=== PATIENT | female | born 1965 | race Caucasian/White ===

== ENCOUNTER 2019-12-01 10:12 | Day surgery (SDC) | payer OTHER, SELFPAY ==
[2019-11-27 19:46] VITALS: BMI 26.0
[2019-12-01 10:44] VITALS: BP 98/68; PULSE 66; RESP 16; TEMP 37.2; O2SAT 99; BMI 29.8
--- NOTE | 2019-12-01 11:30 | HO.ANESPROP2 ---
FORMERLY [facility] Past Medical History Medical History delivery delivered Social History Social History Smoking Status: Current some day smoker Packs Per Day: 0 Cigarettes Per Day: 0.0 Smoked in Last 30 Days: Yes Patient Interested in Nicotine Replacement: No Patient Given Instructions on How to Stop Smoking: No Second Hand Smoke Exposure: Yes Use of substances other than those prescribed or required for medical reasons: No Advance Directives: No Advance Directives Information Provided: No Advance Directives on File: No Meds Allergies Allergy/AdvReac Type Severity Reaction Status Date / Time No Known Allergies Allergy Verified 12/01/19 10:55 Home Medications Medication Instructions Recorded Confirmed Type No Known Home Meds 12/01/19 12/01/19 History Exam Exam Date and Time: December 01, 2019 1130 Height,Weight and Vital Signs: Height 5 ft 8 in Weight 88.952 kg Last Vital Signs Temp 98.9 F 12/01/19 10:44 Pulse 66 12/01/19 10:44 Resp 16 12/01/19 10:44 BP 98/68 12/01/19 10:44 Pulse Ox 99 12/01/19 10:44 Airway Mallampati Class: II TM Dist: >3cm Neck ROM: Full Loose/Missing/Broken Teeth: No Heart: [id number]+[id number] Lungs: ctab/l Assessment and Plan Assessment Anesthesia Assessment: Anesthesia Plan Discussed and Chart Reviewed Final Anesthetic Review NPO: Yes ASA Class: II Final Preanesthetic Review: No Changes in Pt Med Stat, Meds/Allgs Chart Reviewed, Consent Obtained/Reviewed and Anes Risks/Benef Reviewed Patient Risk: Low Procedure Risk: Low Anesthetic Plan Anesthetic Plan: MAC: Disposition: Standard PACU
[2019-12-01] MEDS: Lactated Ringers 1,000 ML 50 ML IVCONT (11:35)
--- NOTE | 2019-12-01 11:42 | MHC.SHP ---
Pre-Procedural Eval Section A The patient is an INPATIENT: No Changes since office visit: No Cold of Flu in the past 2 weeks, No New Medical Problems, No Changes in Medication and No Patient answered all questions The History & Physical has been completed within 30 days and I have reviewed it.: Yes Section B Chief Complaint: Screening Allergies: Allergies Allergy/AdvReac Type Severity Reaction Status Date / Time No Known Allergies Allergy Verified 12/01/19 10:55 Plan Patient has been examined and remains a candidate for the planned procedure
[2019-12-01 12:19] VITALS: BP 92/63; PULSE 75; RESP 16; TEMP 36.1; O2SAT 99
--- NOTE | 2019-12-01 12:19 | PM.OP ---
Brief Operative Note Date of procedure: 12/01/19 Pre-op diagnosis: screening Post-op diagnosis: other (colon polyp) Procedure: colonoscopy Surgeon: Reza Phillips Anesthesia: MAC Estimated blood loss (mL): 5 Pathology: other (polyp 50 com) Condition: stable Disposition: PACU
[2019-12-01 12:32] VITALS: BP 98/66; PULSE 69; RESP 20; O2SAT 98
--- NOTE | 2019-12-01 12:59 | OP_ITS ---
SURGEON: Reza Phillips MD INDICATIONS: Colon cancer screening. PREOPERATIVE DIAGNOSIS: POSTOPERATIVE DIAGNOSIS: PROCEDURE PERFORMED: Colonoscopy to the terminal ileum with biopsy. ESTIMATED BLOOD LOSS: COMPLICATIONS: ANESTHESIA: ASSISTANTS: SPECIMENS: MEDICATIONS: Monitored anesthesia care. DESCRIPTION OF PROCEDURE: History and physical performed. The risks and benefits of the procedure were explained to the patient. Informed consent was obtained. The patient was placed in the left lateral decubitus position. A digital rectal exam was performed and was found to be normal. The Olympus pediatric video colonoscope was introduced into the rectum and advanced to the cecum without difficulty. The cecum was identified by transillumination, palpation, and identification of the ileocecal valve. Examination was performed and the scope was removed. She tolerated the procedure well and was taken to recovery area in stable condition. FINDINGS: The terminal ileum was normal. The visualized colonic mucosa was normal. The quality of the prep was good except in the distal transverse colon with a large amount of liquid stool. This was washed and suctioned. Limited the examination for detection of small polyps. A single polyp measuring less than 5 mm was identified and removed with biopsy forceps. This was located at 50 cm from the anal verge. There was mild diverticulosis. No other polyps were identified. Retroflexed examination showed small internal hemorrhoids. IMPRESSION: Colon polyp. RECOMMENDATION: Follow up the biopsy results. MD ELIZABETH Agudelo/ALFREDITO / [id number]
== END 2019-12-01 12:45 | disposition home or self-care (01) ==
PROVIDERS: Internal Medicine Gastroenterology; PCP Internal Medicine; Visit Provider Internal Medicine
PROC: 0DJD8ZZ Inspection of Lower Intestinal Tract, Via Natural or Artificial Opening Endoscopic (ICD-10-PCS; CPT 45378; principal; 2019-12-01 12:00)
DX: Z12.11 Encounter for screening for malignant neoplasm of colon (principal); Z80.0 Family history of malignant neoplasm of digestive organs; D12.5 Benign neoplasm of sigmoid colon; K57.30 Diverticulosis of large intestine without perforation or abscess without bleeding; K64.8 Other hemorrhoids; Z79.1 Long term (current) use of non-steroidal anti-inflammatories (NSAID)
CPT/HCPCS: 45380; 88305

== ENCOUNTER 2020-05-24 16:25 | Outpatient (REF) | payer OTHER, SELFPAY ==
[2020-05-24 17:02] LABS: MANUAL DIFF FLAG NO
[2020-05-24 17:10] LABS: Basophils Absolute Auto 0.1 X10*3/uL (0.0-0.2); Eosinophils Absolute Auto 0.2 X10*3/uL (0.0-0.4); Eosinophils Percent Auto 2.5 % (0-4); Hematocrit 41.8 % (37-47); Hemoglobin 14.2 g/dl (12.0-16.0); Imm Gran Abs Auto 0.01 X10*3/uL (0.00-0.03); Imm Gran Pct Auto 0.2 % (0.0-0.4); Lymphocytes Absolute Auto 2.5 X10*3/uL (1.2-4.9); Lymphocytes Percent Auto 42.4 % (20-40); Mean Corpuscular Hemoglobin 31.6 pg (27.0-33.0); Mean Corpuscular Volume 93.1 fL (80-98); Mean Platelet Volume 10.6 fL (9.4-12.3); Monocytes Absolute Auto 0.5 X10*3/uL (0.1-1.2); Monocytes Percent Auto 7.7 % (2-11); Neutrophils Absolute Auto 2.7 X10*3/uL (2.0-8.3); Neutrophils Percent Auto 46.2 % (45-73); Platelet Count 263 X10*3/uL (160-400); Red Blood Count 4.49 X10*6/uL (4.20-5.50); Red Cell Distribution Width 12.4 % (11.0-16.0); White Blood Count 5.9 X10*3/uL (4.8-10.8)
[2020-05-24 18:02] LABS: Alanine Aminotransferase 29 U/L (0-31); Albumin Level 4.5 g/dL (3.5-5.0); Alkaline Phosphatase 90 U/L (39-117); Anion Gap 11 (12-20); Aspartate Amino Transferase 26 U/L (5-31); Bilirubin Total 0.6 mg/dL (0.0-1.0); Blood Urea Nitrogen 14 mg/dL (9-16); Calcium 9.7 mg/dL (8.4-10.2); Carbon Dioxide 30 mmol/L (22-29); Chloride 104 mmol/L (96-108); Estimated Glomerular Filt Rate > 60; Glucose Random 94 mg/dL (60-115); Potassium 4.7 mmol/L (3.3-5.1); Sodium 140 mmol/L (135-145); Total Protein 7.5 g/dL (6.5-8.0)
[2020-05-24 18:23] LABS: T4 Thyroxine 7.8 ug/dL (4.5-12.0); Thyroid Stimulating Hormone 1.74 uIU/mL (0.32-4.0)
== END 2020-05-24 16:26 | disposition home or self-care (01) ==
LOC: HO.LAB 16:25
PROVIDERS: PCP Internal Medicine; Visit Provider Internal Medicine
DX: R79.89 Other specified abnormal findings of blood chemistry (principal); R63.5 Abnormal weight gain
CPT/HCPCS: 36415; 80053; 84436; 84443; 85025

== ENCOUNTER 2020-06-09 07:58 | Outpatient (REF) | payer OTHER, SELFPAY ==
--- NOTE | 2020-06-09 08:00 | EMG_ITS ---
Right median and ulnar motor and sensory studies were performed. Right radial sensory study was performed. Right median and lateral antecubital brachial sensory studies were performed. Paraspinal muscles were tested and deltoid was tested with a needle. IMPRESSION: This study was unremarkable with no findings suggestive of entrapment neuropathy or radiculopathy. MD ZEB Gutierrez/ALFREDITO / [id number]
== END 2020-06-09 07:59 | disposition home or self-care (01) ==
LOC: HO.NEURO 07:58
PROVIDERS: PCP Internal Medicine; Visit Provider Internal Medicine
DX: R20.2 Paresthesia of skin (principal)
CPT/HCPCS: 95886; 95910

== ENCOUNTER → 2020-06-22 08:40 | Outpatient (BNVA) | payer OTHER, SELFPAY | PROVIDERS: PCP Internal Medicine; Visit Provider Orthopaedic Surgery | DX: M25.649 Stiffness of unspecified hand, not elsewhere classified (principal); M79.641 Pain in right hand; M79.642 Pain in left hand | CPT/HCPCS: 99202 ==

== ENCOUNTER 2020-07-11 07:49 | Outpatient (REF) | payer OTHER, SELFPAY ==
[2020-07-11 09:19] LABS: C Reactive Protein 0.06 mg/dL (< or = 0.50)
[2020-07-11 09:31] LABS: Rheumatoid Factor < 15.0 IU/mL (<15.0)
[2020-07-13 13:56] LABS: Anti Nuclear Antibody Screen NEGATIVE (NEGATIVE)
== END 2020-07-11 07:50 | disposition home or self-care (01) ==
LOC: HO.LAB 07:49
PROVIDERS: PCP Internal Medicine; Visit Provider Internal Medicine
DX: M79.642 Pain in left hand (principal); M79.641 Pain in right hand
CPT/HCPCS: 36415; 86038; 86039; 86140; 86431

== ENCOUNTER 2020-07-25 09:31 | Outpatient (REF) | payer OTHER, SELFPAY ==
--- NOTE | ~2020-07-25 | MM_ITS ---
EXAMINATION: MM SCREENING DIGITAL BREAST TOMOSYNTHESIS, BILATERAL CLINICAL INFORMATION: Screening. Asymptomatic. Most recent prior outside mammography 2019 reported as normal by patient history (performed in [place] and unavailable). The lifetime risk of breast cancer based on the Tyrer-Cuzick Model is 8%. COMPARISON: Mammography: 06/26/2010 TECHNIQUE: Digital breast tomosynthesis is performed in both the craniocaudal and mediolateral oblique views along with computer-aided detection (CAD). Synthesized 2D images are generated from the tomosynthesis. FINDINGS: There are scattered areas of fibroglandular density (ACR BI-RADS breast composition Category b). Breast tissue composition borders on heterogeneously dense in the upper outer quadrants. The parenchymal distribution is similar to the prior exam 2010. There is no interval mass or architectural abnormality. The axilla and skin contours are unremarkable. No abnormal calcifications on the right. There are some loosely grouped calcifications mid 9:00 left breast, possibly vascular on tomography. Patient will be recalled to further characterize. MM/MM tomosynthesis screening BI IMPRESSION: 1. Left: Loosely grouped calcifications mid 9:00 position, possibly vascular on tomography. 2. Right: No mammographic evidence of malignancy. ASSESSMENT: BI-RADS 0: Incomplete - Need Additional Imaging Evaluation RECOMMENDATION: 1. Additional views of the left breast (magnification CC, magnification LM). 2. Radiology department staff will contact the patient for additional imaging. This patient's information was entered into a reminder system with a target due date for their next mammogram.
== END 2020-07-25 09:32 | disposition home or self-care (01) ==
LOC: HO.MAMMO 09:31
PROVIDERS: PCP Internal Medicine; Visit Provider Internal Medicine
DX: Z12.31 Encounter for screening mammogram for malignant neoplasm of breast (principal)
CPT/HCPCS: 77063; 77067

== ENCOUNTER 2020-07-29 09:34 | Outpatient (REF) | payer OTHER, SELFPAY ==
--- NOTE | ~2020-07-29 | MM_ITS ---
EXAMINATION: MM DIAGNOSTIC DIGITAL MAMMOGRAPHY, LEFT CLINICAL INFORMATION: Calcifications. COMPARISON: Mammography: 08/24/2020 and studies dating back to 12/23/2007. TECHNIQUE: Digital mammography is performed in the following views: Spot magnification views left breast in craniocaudal and 90 degree mediolateral projections. FINDINGS: The breasts are heterogeneously dense, which may obscure small masses (ACR BI-RADS breast composition Category c). Grouping of calcifications about the superior medial aspect of the left breast appear to be punctate with no linear or branching forms. Recommend 6 month follow-up magnification views. Results are provided to the patient at time of visit by the technologist. MM/MM added views LT IMPRESSION: Probable benign left breast calcifications for six-month follow-up magnification views. ASSESSMENT: BI-RADS 3: Probably Benign. RECOMMENDATION: Diagnostic mammography in 6 months. This patient's information was entered into a reminder system with a target due date for their next mammogram.
== END 2020-07-29 09:35 | disposition home or self-care (01) ==
LOC: HO.MAMMO 09:34
PROVIDERS: Visit Provider Internal Medicine
DX: R92.1 Mammographic calcification found on diagnostic imaging of breast (principal)
CPT/HCPCS: 77065

== ENCOUNTER 2021-01-17 11:10 | Outpatient (REF) | payer OTHER, SELFPAY ==
[2021-01-17 11:45] LABS: MANUAL DIFF FLAG NO
[2021-01-17 11:52] LABS: Basophils Absolute Auto 0.1 X10*3/uL (0.0-0.2); Basophils Percent Auto 1.2 % (0-2); Eosinophils Absolute Auto 0.2 X10*3/uL (0.0-0.4); Eosinophils Percent Auto 4.2 % (0-4); Hematocrit 43.5 % (37.0-47.0); Hemoglobin 14.2 g/dl (12.0-16.0); Imm Gran Abs Auto 0.01 X10*3/uL (0.00-0.03); Imm Gran Pct Auto 0.2 % (0.0-0.4); Lymphocytes Absolute Auto 1.8 X10*3/uL (1.2-4.9); Lymphocytes Percent Auto 40.9 % (20-40); Mean Corpuscular HGB Conc 32.6 g/dl (31.0-35.0); Mean Corpuscular Hemoglobin 30.4 pg (27.0-33.0); Mean Corpuscular Volume 93.1 fL (80.0-98.0); Mean Platelet Volume 10.9 fL (9.4-12.3); Monocytes Absolute Auto 0.3 X10*3/uL (0.1-1.2); Monocytes Percent Auto 7.5 % (2-11); Platelet Count 279 X10*3/uL (160-400); Red Blood Count 4.67 X10*6/uL (4.20-5.50); Red Cell Distribution Width 12.7 % (11.0-16.0); White Blood Count 4.3 X10*3/uL (4.8-10.8)
== END 2021-01-17 11:11 | disposition home or self-care (01) ==
LOC: HO.10HDL 11:10
PROVIDERS: Visit Provider Internal Medicine
DX: R07.89 Other chest pain (principal); Z86.39 Personal history of other endocrine, nutritional and metabolic disease; Z82.49 Family history of ischemic heart disease and other diseases of the circulatory system
CPT/HCPCS: 36415; 80053; 80061; 84439; 84443; 85025; 86140

== ENCOUNTER 2021-01-24 09:08 | Outpatient (REF) | payer OTHER, SELFPAY ==
[2021-01-24 10:37] LABS: Alanine Aminotransferase 52 U/L (0-31); Albumin Level 3.9 g/dL (3.5-5.0); Alkaline Phosphatase 130 U/L (39-117); Anion Gap 11 (12-20); Aspartate Amino Transferase 41 U/L (5-31); Bilirubin Total 0.5 mg/dL (0.0-1.0); Blood Urea Nitrogen 12 mg/dL (9-16); Calcium 9.5 mg/dL (8.4-10.2); Carbon Dioxide 26 mmol/L (22-29); Chloride 109 mmol/L (96-108); Cholesterol 167 mg/dL; Estimated Glomerular Filt Rate > 60; Glucose Fasting 87 mg/dL (60-99); HDL Cholesterol 48 mg/dL; LDL Cholesterol Calculated 107 mg/dl; Potassium 4.2 mmol/L (3.3-5.1); Sodium 142 mmol/L (135-145); Total Protein 6.6 g/dL (6.5-8.0); Triglycerides 62 mg/dL
[2021-01-24 11:13] LABS: Free T4 (Free Thyroxine) 0.96 ng/dL (0.71-1.85); Thyroid Stimulating Hormone 5.86 uIU/mL (0.32-4.0)
== END 2021-01-24 09:09 | disposition home or self-care (01) ==
LOC: HO.10HDL 09:08
PROVIDERS: Visit Provider Internal Medicine
DX: R07.89 Other chest pain (principal); Z86.39 Personal history of other endocrine, nutritional and metabolic disease; Z82.49 Family history of ischemic heart disease and other diseases of the circulatory system
CPT/HCPCS: 36415; 80053; 80061; 84439; 84443; 86140

== ENCOUNTER 2021-01-24 13:32 | Outpatient (REF) | payer OTHER, SELFPAY ==
--- NOTE | ~2021-01-24 | MM_ITS ---
EXAMINATION: MM DIAGNOSTIC DIGITAL BREAST TOMOSYNTHESIS, LEFT CLINICAL INFORMATION: Short interval six-month follow-up probable benign calcifications mid inner left breast. The lifetime risk of breast cancer based on the Tyrer-Cuzick Model is 7%. COMPARISON: Mammography: 07/29/2020, 07/25/2020 (BI-RADS 0), 06/26/2010 TECHNIQUE: Digital breast tomosynthesis is performed in both the craniocaudal and mediolateral oblique views along with computer-aided detection (CAD). Synthesized 2D images are generated from the tomosynthesis. Additional magnification left CC and magnification left LM views are obtained. FINDINGS: The breasts are heterogeneously dense, which may obscure small masses (ACR BI-RADS breast composition Category c). Breast tissue composition borders on average fibroglandular. Fibronodular parenchymal pattern is similar to prior studies. There are a few calcifications again seen mid 9:00 left breast. No increasing calcifications or ductal distribution. The axilla and skin contours are unremarkable. Calcifications will be reassessed again at annual bilateral mammography, due in 6 months. Results are provided to the patient at time of visit by the technologist. MM/MM tomosynthesis diagnostic LT IMPRESSION: Calcifications mid 9:00 left breast stable. ASSESSMENT: BI-RADS 3: Probably Benign RECOMMENDATION: Diagnostic mammography at time of annual bilateral exam, due in 6 months. This patient's information was entered into a reminder system with a target due date for their next mammogram.
== END 2021-01-24 13:33 | disposition home or self-care (01) ==
LOC: HO.MAMMO 13:32
PROVIDERS: Visit Provider Internal Medicine
DX: R92.1 Mammographic calcification found on diagnostic imaging of breast (principal)
CPT/HCPCS: 77061; 77065

== ENCOUNTER 2021-03-21 08:51 | Outpatient (REF) | payer OTHER, SELFPAY ==
[2021-03-21 11:17] LABS: Free T4 (Free Thyroxine) 1.11 ng/dL (0.71-1.85); Thyroid Stimulating Hormone 4.66 uIU/mL (0.32-4.0)
== END 2021-03-21 08:52 | disposition home or self-care (01) ==
LOC: HO.10HDL 08:51
PROVIDERS: Visit Provider Internal Medicine
DX: E03.9 Hypothyroidism, unspecified (principal)
CPT/HCPCS: 36415; 84439; 84443

== ENCOUNTER 2021-06-27 14:30 | Outpatient (REF) | payer OTHER, SELFPAY ==
[2021-06-27 15:19] LABS: Alanine Aminotransferase 34 U/L (0-31); Alkaline Phosphatase 114 U/L (39-117); Anion Gap 11 (12-20); Aspartate Amino Transferase 32 U/L (5-31); Bilirubin Total 0.4 mg/dL (0.0-1.0); Blood Urea Nitrogen 12 mg/dL (9-16); C Reactive Protein 0.07 mg/dL (< or = 0.50); Calcium 9.6 mg/dL (8.4-10.2); Carbon Dioxide 28 mmol/L (22-29); Chloride 106 mmol/L (96-108); Estimated Glomerular Filt Rate > 60; Glucose Random 106 mg/dL (60-115); Sodium 141 mmol/L (135-145); Total Protein 7.1 g/dL (6.5-8.0)
[2021-06-27 15:39] LABS: Free T4 (Free Thyroxine) 1.09 ng/dL (0.71-1.85); Thyroid Stimulating Hormone 2.49 uIU/mL (0.32-4.0)
[2021-06-29 05:21] LABS: Thyroid Peroxidase Antibodies 88 IU/mL (<9)
== END 2021-06-27 14:31 | disposition home or self-care (01) ==
LOC: HO.LAB 14:30
PROVIDERS: PCP Internal Medicine; Visit Provider Internal Medicine
DX: E03.9 Hypothyroidism, unspecified (principal); R60.0 Localized edema; K21.9 Gastro-esophageal reflux disease without esophagitis
CPT/HCPCS: 36415; 80053; 84439; 84443; 86140; 86376

== ENCOUNTER 2021-07-25 13:26 | Outpatient (REF) | payer OTHER, SELFPAY ==
--- NOTE | ~2021-07-25 | MM_ITS ---
EXAMINATION: MM DIAGNOSTIC DIGITAL BREAST TOMOSYNTHESIS, BILATERAL CLINICAL INFORMATION: Yearly screening and diagnostic left breast study for calcifications The lifetime risk of breast cancer based on the Tyrer-Cuzick Model is 6.6%. COMPARISON: Mammography: August 24, 2020 and studies dating back to September 03, 2006 TECHNIQUE: Digital breast tomosynthesis is performed in both the craniocaudal and mediolateral oblique views along with computer-aided detection (CAD). Synthesized 2D images are generated from the tomosynthesis. Spot magnification views of the left breast in craniocaudal and 90 degree mediolateral views also performed. FINDINGS: The breasts are heterogeneously dense, which may obscure small masses (ACR BI-RADS breast composition Category c). There are no new significant masses, abnormal calcifications, or other abnormalities. Calcifications about the medial left breast appear stable. Results are provided to the patient at time of visit by the technologist. MM/MM tomosynthesis diagnostic BI IMPRESSION: Stable appearance of left breast calcifications. Stable bilateral mammography. Recommend 1 year follow-up diagnostic study with magnification views of the left breast. ASSESSMENT: BI-RADS 3: Probably Benign RECOMMENDATION: Diagnostic mammography at time of next annual exam, due in 12 months. This patient's information was entered into a reminder system with a target due date for their next mammogram.
== END 2021-07-25 13:27 | disposition home or self-care (01) ==
LOC: HO.MAMMO 13:26
PROVIDERS: Visit Provider Internal Medicine
DX: R92.1 Mammographic calcification found on diagnostic imaging of breast (principal)
CPT/HCPCS: 77062; 77066

== ENCOUNTER 2021-09-18 10:09 | Outpatient (REF) | payer OTHER, SELFPAY ==
--- NOTE | ~2021-09-18 | US_ITS ---
EXAMINATION: US THYROID CLINICAL INFORMATION: Enlarged thyroid, nontoxic goiter. COMPARISON: None TECHNIQUE: Linear transducer grayscale and color Doppler examination with attention to the region of the thyroid. FINDINGS: SIZE: Measurements of the thyroid lobes and nodules are given in sagittal, anteroposterior and transverse dimensions respectively. Right Thyroid Lobe: 4.9 x 1.6 x 2.0 cm, volume 8.2 mL. Parenchyma: The gland echotexture is heterogeneous. Thyroid vascularity is normal. Left Thyroid Lobe: 4.6 x 1.5 x 1.2 cm, volume 4.3 mL. Parenchyma: The gland echotexture is heterogeneous. Thyroid vascularity is normal. Isthmus: 0.2 cm in maximum AP dimension. Estimated total number of nodules greater than or equal to 1 cm: 2. Machinery Mover nodules are described as follows: 1. Location: Right mid/inferior. Size: 1.7 x 1.4 x 1.0 cm, volume 1.3 mL. Nodule characteristics: Composition: Solid/almost completely solid (2). Echogenicity: Hypoechoic (2). Shape: Not taller than wide (0). Margins: Irregular (2). Echogenic Foci: None (0). ACR TI-RADS total points: 6 ACR TI-RADS category: 4 2. Location: Right superior. Size: 1.0 x 0.7 x 0.6 cm, volume 0.2 mL. Nodule characteristics: Composition: Solid (2). Echogenicity: Hypoechoic (2). Shape: Not taller than wide (0). Margins: Smooth (0). Echogenic Foci: None (0). ACR TI-RADS total points: 4 ACR TI-RADS category: 4 NODES: No lymphadenopathy is seen in the tissue surrounding the thyroid gland. US/US thyroid IMPRESSION: A 1.7 cm TR 4 right mid/inferior thyroid nodule meets criteria for tissue sampling. A 1.0 cm TR 4 right superior thyroid nodule meets criteria for follow-up ultrasound at one, 2, 3, and 5 years. Heterogeneous thyroid which can be seen in the setting of thyroiditis. ACR TI-RADS RECOMMENDATION REFERENCE: Ultrasound-guided fine-needle aspiration, followup ultrasound, no further follow up. * TR1 (0 point) and TR 2 (2 points): No FNA or follow up * TR3 (3 points): FNA if more than or equal to 2.5 cm in maximum dimension, followup ultrasound in 1, 3 and 5 years if 1.5 to 2.4 cm in maximum dimension. * TR4 (4-6 points): FNA if more than or equal to 1.5 cm in maximum dimension, followup ultrasound in 1, 2, 3 and 5 years if 1 to 1.4 cm in maximum dimension. * TR5 (more than or equal to 7 points): FNA if more than or equal to 1 cm in maximum dimension, followup ultrasound every year for 5 years if 0.5 to 0.9 cm in maximum dimension. * TR3, TR4 or TR5 nodules that are below the size threshold for follow up receive no follow up.
== END 2021-09-18 10:10 | disposition home or self-care (01) ==
LOC: HO.US 10:09
PROVIDERS: Visit Provider Internal Medicine
DX: E04.9 Nontoxic goiter, unspecified (principal)
CPT/HCPCS: 76536

== ENCOUNTER 2022-08-07 13:20 | Outpatient (REF) | payer OTHER, SELFPAY ==
--- NOTE | ~2022-08-07 | MM_ITS ---
EXAMINATION: MM DIAGNOSTIC DIGITAL BREAST TOMOSYNTHESIS, BILATERAL CLINICAL INFORMATION: Due for yearly. Also follow-up surveillance probable benign calcifications mid 9:00 left breast initially described on mammography 07/25/2020 (BI-RADS 0). The lifetime risk of breast cancer based on the Tyrer-Cuzick Model is 7%. COMPARISON: Multiple prior mammography exams dating back to 06/26/2010. TECHNIQUE: Digital breast tomosynthesis is performed in both the craniocaudal and mediolateral oblique views along with computer-aided detection (CAD). Synthesized 2D images are generated from the tomosynthesis. Additional magnification left CC and magnification left ML views are provided. FINDINGS: The breasts are heterogeneously dense, which may obscure small masses (ACR BI-RADS breast composition Category c). Left breast calcifications for follow-up are stable from prior diagnostic exams and now considered to be benign. Neither breast shows abnormal calcifications. There is a fibronodular parenchymal pattern similar to prior studies. No developing density or interval architectural abnormality. Parenchymal asymmetry mid medial left breast on CC view is similar to multiple prior exams dating back to 2010. The axilla and skin contours are unremarkable. Results are provided to the patient at time of visit by the technologist. MM/MM tomosynthesis diagnostic BI IMPRESSION: -No significant changes from prior studies. -Left breast calcifications stable from prior diagnostic exams and now considered to be benign. ASSESSMENT: BI-RADS 2: Benign RECOMMENDATION: Routine annual mammography screening. This patient's information was entered into a reminder system with a target due date for their next mammogram.
== END 2022-08-07 13:21 | disposition home or self-care (01) ==
LOC: HO.MAMMO 13:20
PROVIDERS: PCP Internal Medicine; Visit Provider Internal Medicine
DX: R92.1 Mammographic calcification found on diagnostic imaging of breast (principal)
CPT/HCPCS: 77062; 77066

== ENCOUNTER 2023-04-18 07:31 | Outpatient (REF) | payer OTHER, SELFPAY ==
[2023-04-18 10:54] LABS: MANUAL DIFF FLAG NO
[2023-04-18 11:06] LABS: Basophils Absolute Auto 0.1 X10*3/uL (0.0-0.2); Basophils Percent Auto 1.5 % (0-2); Eosinophils Absolute Auto 0.2 X10*3/uL (0.0-0.4); Eosinophils Percent Auto 4.3 % (0-4); Hematocrit 39.8 % (37.0-47.0); Hemoglobin 13.3 g/dl (12.0-16.0); Imm Gran Abs Auto 0.01 X10*3/uL (0.00-0.03); Imm Gran Pct Auto 0.2 % (0.0-0.4); Lymphocytes Absolute Auto 2.3 X10*3/uL (1.2-4.9); Mean Corpuscular HGB Conc 33.4 g/dl (31.0-35.0); Mean Corpuscular Volume 92.8 fL (80.0-98.0); Mean Platelet Volume 10.5 fL (9.4-12.3); Monocytes Absolute Auto 0.3 X10*3/uL (0.1-1.2); Monocytes Percent Auto 6.8 % (2-11); Neutrophils Absolute Auto 1.8 x10*3/uL (2.0-8.3); Neutrophils Percent Auto 39.2 % (45-73); Platelet Count 247 X10*3/uL (160-400); Red Blood Count 4.29 X10*6/uL (4.20-5.50); Red Cell Distribution Width 12.4 % (11.0-16.0); White Blood Count 4.7 X10*3/uL (4.8-10.8)
[2023-04-18 11:32] LABS: Alanine Aminotransferase 24 U/L (0-31); Albumin Level 3.9 g/dL (3.5-5.0); Alkaline Phosphatase 98 U/L (39-117); Anion Gap 9 (12-20); Aspartate Amino Transferase 22 U/L (5-31); Bilirubin Total 0.5 mg/dL (0.0-1.0); Blood Urea Nitrogen 11 mg/dL (9-16); Calcium 9.3 mg/dL (8.4-10.2); Carbon Dioxide 29 mmol/L (22-29); Chloride 109 mmol/L (96-108); Cholesterol 181 mg/dL (<200); Estimated Glomerular Filt Rate > 60; Glucose Fasting 92 mg/dL (60-99); HDL Cholesterol 50 mg/dL (>40); LDL Cholesterol Calculated 113 mg/dL (<100); Potassium 3.8 mmol/L (3.3-5.1); Sodium 143 mmol/L (135-145); Total Protein 6.8 g/dL (6.5-8.0); Triglycerides 92 mg/dL (<150)
[2023-04-18 11:49] LABS: Free T4 (Free Thyroxine) 0.89 ng/dL (0.71-1.85); Thyroid Stimulating Hormone 5.72 uIU/mL (0.32-4.0)
== END 2023-04-18 07:32 | disposition home or self-care (01) ==
LOC: HO.10HDL 07:31
PROVIDERS: Visit Provider Internal Medicine
DX: E03.9 Hypothyroidism, unspecified (principal)
CPT/HCPCS: 36415; 80053; 80061; 84439; 84443; 85025

== ENCOUNTER 2023-05-07 11:15 | Outpatient (REF) | payer OTHER, SELFPAY ==
--- NOTE | ~2023-05-07 | US_ITS ---
EXAMINATION: US THYROID CLINICAL INFORMATION: Enlarged thyroid. COMPARISON: Ultrasound soft tissue head/neck thyroid dated 09/18/2021. TECHNIQUE: Linear transducer grayscale and color Doppler examination with attention to the region of the thyroid. FINDINGS: SIZE: Measurements of the thyroid lobes and nodules are given in sagittal, anteroposterior and transverse dimensions respectively. Right Thyroid Lobe: 4.8 x 1.7 x 1.4 cm, volume 5.5 mL. Previously 4.9 x 1.6 x 2.0 cm, volume 8.2 mL. Parenchyma: The gland echotexture is heterogeneous. Thyroid vascularity is normal. Left Thyroid Lobe: 4.5 x 1.0 x 1.2 cm, volume 2.7 mL. Previously 4.6 x 1.5 x 1.2 cm, volume 4.3 mL. Parenchyma: The gland echotexture is heterogeneous. Thyroid vascularity is normal. Isthmus: 0.3 cm in maximum AP dimension. Previously 0.2 cm. Estimated total number of nodules greater than or equal to 1 cm: 2. Education Dean nodules are described as follows: 1. Location: Left inferior. Size: 0.7 x 0.7 x 0.3 cm, volume 0.078 mL. Previously: Not documented on the prior study. Nodule characteristics: Composition: Solid (2). Echogenicity: Hypoechoic (2). Shape: Not taller than wide (0). Margins: Smooth (0). Echogenic Foci: None (0). ACR TI-RADS total points: 4 ACR TI-RADS category: 4 2. Location: Right inferior. Size: 1.2 x 0.7 x 1.1 cm, volume 0.516 mL. Previously: 1.7 x 1.4 and 1.0 cm, volume 1.3 mL. Nodule characteristics: Composition: Solid (2). Echogenicity: Hypoechoic (2). Shape: Not taller than wide (0). Margins: Smooth (0). Echogenic Foci: None (0). ACR TI-RADS total points: 4 Previous: 6 ACR TI-RADS category: 4 Previous: 4 Significant change in size (>/= 20% in 2 dimensions and minimal increase of 2 mm or 50% or greater increase in volume): No 3. Location: Right superior. Size: 1.0 x 0.7 x 0.6 cm, volume 0.208 mL. Previously: 1.0 x 0.7 x 0.6 cm, volume 0.2 mL. Nodule characteristics: Composition: Solid (2). Echogenicity: Hypoechoic (2). Shape: Not taller than wide (0). Margins: Smooth (0). Echogenic Foci: None (0). ACR TI-RADS total points: 4 Previous: 4 ACR TI-RADS category: 4 Previous: 4 Significant change in size (>/= 20% in 2 dimensions and minimal increase of 2 mm or 50% or greater increase in volume): No NODES: No lymphadenopathy is seen in the tissue surrounding the thyroid gland. US/US thyroid IMPRESSION: Again demonstrated is a heterogeneous thyroid gland demonstrating a few small nodules. ACR TI-RADS RECOMMENDATION REFERENCE: Ultrasound-guided fine-needle aspiration, follow up ultrasound, no further followup. * TR1 (0 point) and TR2 (2 points): No FNA or followup * TR3 (3 points): FNA if more than or equal to 2.5 cm in maximum dimension, follow up ultrasound in 1, 3 and 5 years if 1.5 to 2.4 cm in maximum dimension. * TR4 (4-6 points): FNA if more than or equal to 1.5 cm in maximum dimension, follow up ultrasound in 1, 2, 3 and 5 years if 1 to 1.4 cm in maximum dimension. * TR5 (more than or equal to 7 points): FNA if more than or equal to 1 cm in maximum dimension, follow up ultrasound every year for 5 years if 0.5 to 0.9 cm in maximum dimension. * TR3, TR4 or TR5 nodules that are below the size threshold for follow up receive no followup.
== END 2023-05-07 11:16 | disposition home or self-care (01) ==
LOC: HO.US 11:15
PROVIDERS: PCP Internal Medicine; Visit Provider Internal Medicine
DX: E04.9 Nontoxic goiter, unspecified (principal)
CPT/HCPCS: 76536

== ENCOUNTER 2023-08-06 10:16 | Outpatient (REF) | payer OTHER, SELFPAY ==
[2023-08-06 12:11] LABS: Thyroid Stimulating Hormone 3.11 uIU/mL (0.32-4.0)
== END 2023-08-06 10:17 | disposition home or self-care (01) ==
LOC: HO.10HDL 10:16
PROVIDERS: Visit Provider Internal Medicine
DX: E03.9 Hypothyroidism, unspecified (principal)
CPT/HCPCS: 36415; 84439; 84443

== ENCOUNTER 2023-08-13 14:18 | Outpatient (REF) | payer OTHER, SELFPAY ==
--- NOTE | ~2023-08-13 | MM_ITS ---
EXAMINATION: MM DIAGNOSTIC DIGITAL BREAST TOMOSYNTHESIS, BILATERAL CLINICAL INFORMATION: Follow-up left breast calcifications. Scheduling error was made by the scheduling staff, who is scheduled for diagnostic follow-up for today instead of a bilateral screening, as the prior examination of 08/07/2022 was a BI-RADS 2. Calcifications had initially been followed 07/25/2020. Patient here for bilateral screening yearly exam. COMPARISON: Mammography: 08/07/2022, 07/25/2021, 01/24/2021, 07/29/2020 (BI-RADS 3), 07/25/2020 (BI-RADS 0), and dating back to 2009. TECHNIQUE: Digital breast tomosynthesis is performed in both the craniocaudal and mediolateral oblique views along with computer-aided detection (CAD). Synthesized 2D images are generated from the tomosynthesis. In addition, spot magnification 2-D left CC and ML views were obtained. FINDINGS: The breasts are heterogeneously dense, which may obscure small masses (ACR BI-RADS breast composition Category c). Small group of calcifications in the mid 9:00 left breast are stable and unchanged and benign. There are no suspicious masses, new suspicious grouped calcifications, or areas of architectural distortion in either breast. The parenchymal pattern is stable from prior exams. There is no skin or axillary abnormality. MM/MM tomosynthesis diagnostic BI IMPRESSION: No findings suspicious for malignancy. Stable benign findings left breast. Recommend patient resume annual routine screening mammography. ASSESSMENT: BI-RADS BI-RADS 2 - Benign Findings RECOMMENDATION: 1 year F/U Results were provided to the patient at time of visit by the technologist. This patient's information was entered into a reminder system with a target due date for their next mammogram.
== END 2023-08-13 14:19 | disposition home or self-care (01) ==
LOC: HO.MAMMO 14:18
PROVIDERS: PCP Internal Medicine; Visit Provider Internal Medicine
DX: R92.1 Mammographic calcification found on diagnostic imaging of breast (principal)
CPT/HCPCS: 77062; 77066

== ENCOUNTER → 2023-08-13 15:00 | Outpatient (BNV) | payer OTHER, SELFPAY | PROVIDERS: PCP Internal Medicine; Visit Provider Radiology Diagnostic Radiology | DX: Z12.31 Encounter for screening mammogram for malignant neoplasm of breast (principal) | CPT/HCPCS: 77063; 77067 ==

== ENCOUNTER 2024-07-03 13:28 | Outpatient (AMB) | payer OTHER, SELFPAY ==
--- OUTSIDE RECORDS SUMMARY | 2024-07-03 13:31 | XMS_ITS | Patient Health Record ---
Author Organization [facility] Address [address] [place] [address] Care Team Providers Care Cook 3 Pastry Name Role Phone Eliu Rivas MD Primary Care Provider Del Phillips Jr Reza Unavailable Reason For Referral No Information Medications Medication SIG (Take, Route, Frequency, Duration) Notes Start Date End Date Status ibuprofen 1 tab Oral as needed Active MiraLax (colon prep) 8.3 ounce ((238) grams mixed with Gatorade or Crystal Light orally begin at 5:00 p.m. the day before the procedure for 1 day 11/26/2019 Active Immunizations Vaccine Route Administration Date Status Comme nts Influenza Unknown 11/26/2019 Refused Social History Tobacco Use: Social History Observation Description Date Details (start date - stop date) Never Smoker NA - NA Tobacco Use/Smoking Question Answer Notes Patient is a nonsmoker Alcohol Screen Question Answer Notes Did you have a drink containing alcohol in the p ast year? No Points 0 Interpretation Negative Problems Problem Type SNOMED Code ICD Code Onset Dates Problem Status W/U Status Risk Notes Problem Colon cancer screening (Z12.11) Active confirmed Problem [id number] group home (current) use of non-steroidal anti-inflammato petey (NSAID) (Z79.1) Active confirmed Plan Of Treatment Future Test Test Name Order Date COLONOSCOPY 11/26/2019 Insurance Providers Payer Name Payer Address Payer Phone Subscriber Number Group Number Insured Name Patient Relationship to Insured Coverage Start Date Coverage End Date [facility] [address] [address] [place], [place] [id number] JEFF TREJO Self - patient is the insured Medical (General) History Medical History History ICD Code Denies [place],DM,CVA,Lung disease,renal dise ase Surgical History Surgery Date(Month/Year) section
--- OUTSIDE RECORDS SUMMARY | 2024-07-03 13:31 | XMS_ITS | Clinical Summary ---
Author Organization [facility] Address [address] [place] [address] Care Team Providers Care Personalization Specialist Name Role Phone Unknown Primary Care Provider [phone] Allergies No known active allergies Medications ondansetron (ZOFRAN-ODT) 4 MG disintegrating tablet Take 1 tablet (4 mg total) by mouth 3 times daily (every 8 hours) as needed for nausea or vomiting. Place tablet on tongue to dissolve. 10 tablet Active Social History Tobacco Use Types Packs/Day Years Used Date Smoking Tobacco: Never Assessed Comments Unknown Sex and Gender Information Value Date Recorded Sex Assigned at Female 03/02/2022 8:23 PM EST Legal Sex Female 7:15 PM EST Gender Identity Female 03/02/2022 8:23 PM EST Sexual Orientation Heterosexual (straight) 03/02 8:23 PM EST Last Filed Vital Signs Vital Sign Reading Time Taken Comments Blood Pressure 149/90 03/02/2022 7:54 PM EST Pulse 83 03/02/2022 7:54 PM EST Temperature 36.9 ??C (98.4 ??F) 03/02/2022 7:54 PM ES T Respiratory Rate 16 03/02/2022 7:54 PM EST Oxygen Saturation 100% 03/02/2022 7:54 PM EST Inhaled Oxygen Concentration - - Weight - - Height - - Body Mass Index - - Plan of Treatment Health Maintenance Due Date Last Done Comments Hepatitis C Virus Screening 1965 HIV Screening 08/29/1980 DTaP/Tdap/Td Vaccines (1 - Tdap) 08/29/1986 Hepatitis B Vaccines (1 of 3 - 19+ 3-dose series) 08/18 Pap Smear (Ages 21-65) 08/29/1988 Mammogram 2007 Colonoscopy 08/29/2012 Pneumococcal Vaccines 50+ (1 of 1 - PCV) 08/29/2017 Zoster (Shingles) Vaccine (1 of 2) 08/29/2017 COVID-19 Vaccine (2 - season) 2023 Influenza Vaccine 09/18/2024 Insurance [facility] Care Teams Personalization Specialist Relationship Specialty Start Date End Date Unknown Unknow Provider Address PCP - General 02/18/22
--- NOTE | 2024-07-03 13:48 | MHC.PC.OV ---
Vital Signs 07/03/24 13:54 Height 5 ft 6.93 in Weight 200 lb BMI 31.4 BP 110/74 Blood Pressure Location Lt brachial Position Sitting Respiration 16 Pulse 77 Pulse Source Pulse Oximeter Temp 98.4 F Temp Source Temporal Artery Scan Pulse Oximetry (%) 97 Oxygen Delivery Method Room Air Intake Visit Reasons: Routine - see comments Intake Note: patient here for routine follow up Encyclopedia Research Worker Required: No Is last menstrual period known: No Post menopausal: No Patient : No Allergies No Known Allergies Allergy (Verified 07/03/24 13:52) Tobacco use date assessed: 07/03/24 Dental Screening Dental Screen Date: 07/03/24 Did you have a dental visit in the last 12 months?: No Did you have a dental problem in the last 6 months where you did not have access to dental care?: No Was dental information given to patient?: No HPI HPI Comments History of Present Illness Details The patient is a 58 year old female with a past medical history of hypothyroid s/p radioactive iodine, thyroid nodules presenting for follow up Hypothyroid: On levothyroxine 25mcg daily. 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 HEENT: Denies changes in vision and hearing. RESPIRATORY: Denies SOB and cough. CV: Denies palpitations and CP GI: Denies abdominal pain, nausea, vomiting and diarrhea. : Denies dysuria and urinary frequency. MSK: Denies new myalgia and joint pain. SKIN: Denies rash and pruritus. NEUROLOGICAL: Denies headache PSYCHIATRIC: Denies recent changes in mood. PHYSICAL EXAM: GENERAL: Alert and oriented x 3. NAD EYES: EOMI. Anicteric. HENT: Moist mucous membranes. No scleral icterus. No cervical lymphadenopathy. LUNGS: Clear to auscultation bilaterally. CARDIOVASCULAR: Regular rate and rhythm. No murmur. No JVD. ABDOMEN: Soft, non-tender +bs EXTREMITIES: No edema. Non-tender. SKIN: No rashes or lesions. Warm. NEUROLOGIC: No focal neurological deficits. CN II-XII grossly intact PSYCHIATRIC: Cooperative. Appropriate mood and affect [facility] Medical History (Updated 07/03/24 @ 14:23 by Marli Huerta MD) delivery delivered Surgical History (Updated 07/02/24 @ 07:36 by Camilla Gant) History of colonoscopy (~12/01/19) Family History (Updated 06/22/20 @ 09:07 by NAVNEET Mora) Father Colon cancer Social History (Updated 06/22/20 @ 09:07 by NAVNEET Mora) Housing: House Patient Tobacco Use Status: Never used Tobacco Cigarette Packs Per Day: 0 Cigarettes Per Day: 0 e-Cigarette/Vaping Use: Never Used Second Hand Smoke Exposure: Yes Patient : No service: No Current occupational status: employed 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 Current occupational exposures/hazards: No Cognitive needs: No Hearing needs: No Vision needs: Yes Physical exam (Primary Care) Vital Signs: Last Vital Signs Temp 98.4 F 07/03/24 13:54 Pulse 77 07/03/24 13:54 Resp 16 07/03/24 13:54 BP 110/74 07/03/24 13:54 Pulse Ox 97 07/03/24 13:54 Oxygen Delivery Method Room Air 07/03/24 13:54 BMI result Body Mass Index 31.4 Tobacco/Smoking Status: Tobacco use Status Tobacco use date assessed 07/03/24 07/03/24 13:55 Patient Tobacco Use Status Never used Tobacco 07/03/24 13:55 e-Cigarette/Vaping Use Never Used 07/03/24 13:55 Coding Level of Care Code New Pt Level 4 (20941) Diagnoses Hypothyroidism, unspecified type E03.9 Hypothyroidism type: unspecified Insulin resistance E88.819 Dyslipidemia E78.5 Assessment & Plan Assessment & Plan (1) Hypothyroid: Code(s): E03.9 - Hypothyroidism, unspecified Category: Medical Qualifiers: Hypothyroidism type: unspecified Qualified Code(s): E03.9 - Hypothyroidism, unspecified (2) Insulin resistance: Code(s): E88.819 - Insulin resistance, unspecified Category: Medical (3) Dyslipidemia: Code(s): E78.5 - Hyperlipidemia, unspecified Category: Medical Plan 58 year old to establish care Past medical, surgical, social reviewed Hypothyroid has been stable on levothyroxine Weight gain-discussed GLP agonist. Insurance may cover rybelus.If not she will do a trial of phentermine Labs ordered Orders: Orders MM screening mammo BI Today Z12.31 - Encounter for screening mammogram for malignant neoplasm of breast Comprehensive Met. Panel Today E03.9 - Hypothyroidism, unspecified, E78.5 - Hyperlipidemia, unspecified, Z13.0 - Encounter for screening for diseases of the blood and blood-forming organs and certain disorders involving the immune mechanism, Z13.228 - Encounter for screening for other metabolic disorders Lipid Panel Today E03.9 - Hypothyroidism, unspecified, E78.5 - Hyperlipidemia, unspecified, Z13.0 - Encounter for screening for diseases of the blood and blood-forming organs and certain disorders involving the immune mechanism, Z13.228 - Encounter for screening for other metabolic disorders Complete Blood Count Auto Diff Today E03.9 - Hypothyroidism, unspecified, E78.5 - Hyperlipidemia, unspecified, Z13.0 - Encounter for screening for diseases of the blood and blood-forming organs and certain disorders involving the immune mechanism, Z13.228 - Encounter for screening for other metabolic disorders TSH reflex Free T4 Today E03.9 - Hypothyroidism, unspecified, E78.5 - Hyperlipidemia, unspecified, Z13.0 - Encounter for screening for diseases of the blood and blood-forming organs and certain disorders involving the immune mechanism, Z13.228 - Encounter for screening for other metabolic disorders Thyroid Peroxidase Antibodies Today E03.9 - Hypothyroidism, unspecified, E78.5 - Hyperlipidemia, unspecified, Z13.0 - Encounter for screening for diseases of the blood and blood-forming organs and certain disorders involving the immune mechanism, Z13.228 - Encounter for screening for other metabolic disorders Vitamin D 25-OH (D2 and D3) Today E88.819 - Insulin resistance, unspecified Referrals DEDICATED INTERMODAL TRUCK DRIVER Referral Z01.419 - Encounter for gynecological examination (general) (routine) without abnormal findings Medications: New levothyroxine 25 mcg PO DAILY 90 caps 3RF semaglutide (Rybelsus) 3 mg PO DAILY 30 days 30 tabs 0RF phentermine must administer 30 minutes before or 1-2 hours after breakfast [id number] [facility] [id number] Member [id number] 37.5 mg PO DAILY 30 caps 0RF
[2024-07-03 13:54] VITALS: BP 110/74; PULSE 77; RESP 16; TEMP 36.9; O2SAT 97; BMI 31.4
== END 2024-07-03 14:17 | disposition home or self-care (01) ==
LOC: HO.HMCHD 13:29
PROVIDERS: PCP Internal Medicine; Visit Provider Internal Medicine
DX: E03.9 Hypothyroidism, unspecified (principal); E88.819 Insulin resistance, unspecified; E78.5 Hyperlipidemia, unspecified

== ENCOUNTER → 2024-07-03 13:28 | Outpatient (BNVA) | payer OTHER, SELFPAY | PROVIDERS: PCP Internal Medicine; Visit Provider Internal Medicine | DX: E03.9 Hypothyroidism, unspecified (principal); E88.819 Insulin resistance, unspecified; E78.5 Hyperlipidemia, unspecified | CPT/HCPCS: 99202 ==

== ENCOUNTER 2024-07-06 07:40 | Outpatient (REF) | payer OTHER, SELFPAY ==
--- OUTSIDE RECORDS SUMMARY | 2024-07-06 07:43 | XMS_ITS | Patient Health Record ---
Author Organization [facility] Address [address] [place] [address] Care Team Providers Care Hobbies And Crafts Sales Representative Name Role Phone Eliu Rivas MD Primary Care Provider Del Phillips Jr Reza Unavailable [phone] Reason For Referral No Information Medications Medication [...] Colon cancer screening (Z12.11) Active confirmed Problem [id number] skilled nursing (current) use of non-steroidal anti-inflammato petey (NSAID) (Z79.1) Active confirmed Plan Of Treatment Future Test Test Name Order Date COLONOSCOPY 11/26/2019 Insurance Providers Payer Name Payer Address Payer Phone Subscriber Number Group Number Insured Name Patient Relationship to Insured Coverage Start Date Coverage End Date [facility] [employer] [facility] [address] [address] [place], [place] [id number] JEFF TREJO Self - patient is the insured Medical (General) History Medical History History ICD Code Denies [place],DM,CVA,Lung disease,renal dise ase Surgical History Surgery Date(Month/Year) section
--- OUTSIDE RECORDS SUMMARY | 2024-07-06 07:43 | XMS_ITS | Clinical Summary ---
Author Organization [facility] Address [address] [place] [address] Care Team Providers Care Adolescent Medicine Specialist Name Role Phone Unknown Primary Care [...] - season) 2023 Influenza Vaccine 09/18/2024 Insurance [facility] INDIVIDUAL EXCHANGE Care Teams Adolescent Medicine Specialist Relationship Specialty Start Date End Date Unknown Unknow Provider Address PCP - General 02/18/22
[2024-07-06 10:20] LABS: MANUAL DIFF FLAG NO
[2024-07-06 10:49] LABS: Basophils Absolute Auto 0.1 X10*3/uL (0.0-0.2); Eosinophils Absolute Auto 0.2 X10*3/uL (0.0-0.4); Eosinophils Percent Auto 4.8 % (0-4); Hemoglobin 13.3 g/dl (12.0-16.0); Imm Gran Abs Auto 0.01 X10*3/uL (0.00-0.03); Imm Gran Pct Auto 0.2 % (0.0-0.4); Lymphocytes Absolute Auto 2.5 X10*3/uL (1.2-4.9); Lymphocytes Percent Auto 52.2 % (20-40); Mean Corpuscular HGB Conc 33.3 g/dl (31.0-35.0); Mean Corpuscular Volume 93.2 fL (80.0-98.0); Mean Platelet Volume 10.6 fL (9.4-12.3); Monocytes Absolute Auto 0.4 X10*3/uL (0.1-1.2); Monocytes Percent Auto 7.7 % (2-11); Neutrophils Absolute Auto 1.6 x10*3/uL (2.0-8.3); Neutrophils Percent Auto 34.1 % (45-73); Platelet Count 301 X10*3/uL (160-400); Red Blood Count 4.29 X10*6/uL (4.20-5.50); Red Cell Distribution Width 12.4 % (11.0-16.0); White Blood Count 4.8 X10*3/uL (4.8-10.8)
[2024-07-06 11:27] LABS: Alanine Aminotransferase 22 U/L (0-31); Albumin Level 4.1 g/dL (3.5-5.0); Alkaline Phosphatase 108 U/L (39-117); Anion Gap 9 (12-20); Aspartate Amino Transferase 26 U/L (5-31); Bilirubin Total 0.5 mg/dL (0.0-1.0); Blood Urea Nitrogen 11 mg/dL (9-16); Calcium 9.4 mg/dL (8.4-10.2); Carbon Dioxide 30 mmol/L (22-29); Chloride 105 mmol/L (96-108); Cholesterol 188 mg/dL (<200); Estimated Glomerular Filt Rate > 60; Glucose Random 93 mg/dL (60-115); HDL Cholesterol 43 mg/dL (>40); LDL Cholesterol Calculated 125 mg/dL (<100); Potassium 4.4 mmol/L (3.3-5.1); Sodium 140 mmol/L (135-145); TSH reflex Free T4 5.18 uIU/mL (0.32-4.0); Total Protein 7.1 g/dL (6.5-8.0); Triglycerides 104 mg/dL (<150)
[2024-07-06 12:57] LABS: Free T4 (Free Thyroxine) 1.08 ng/dL (0.71-1.85)
[2024-07-07 17:12] LABS: Thyroid Peroxidase Antibodies 126 IU/mL (<9)
[2024-07-10 14:23] LABS: Vitamin D 25-OH, D2 <4 ng/mL; Vitamin D 25-OH, D3 22 ng/mL; Vitamin D 25-OH, Total 22 ng/mL (30-100)
== END 2024-07-06 07:41 | disposition home or self-care (01) ==
LOC: HO.10HDL 07:40
PROVIDERS: Visit Provider Internal Medicine
DX: Z13.228 Encounter for screening for other metabolic disorders (principal); E78.5 Hyperlipidemia, unspecified; E03.9 Hypothyroidism, unspecified; Z13.0 Encounter for screening for diseases of the blood and blood-forming organs and certain disorders involving the immune mechanism; E88.819 Insulin resistance, unspecified
CPT/HCPCS: 36415; 80053; 80061; 82306; 84439; 84443; 85025; 86376

== ENCOUNTER 2024-08-25 13:14 | Outpatient (REF) | payer OTHER, SELFPAY ==
--- OUTSIDE RECORDS SUMMARY | 2024-08-25 13:54 | XMS_ITS | Patient Health Record ---
Author Organization [facility] Address [address] [place] [address] Care Team Providers Care Supervisor Park Workers Name Role Phone Eliu Rivas MD Primary [...] Colon cancer screening (Z12.11) Active confirmed Problem [id number] care home (current) use of non-steroidal anti-inflammato petey (NSAID) (Z79.1) Active confirmed Plan Of Treatment Future Test Test Name Order Date COLONOSCOPY 11/26/2019 Insurance Providers Payer Name Payer Address Payer Phone Subscriber Number Group Number Insured Name Patient Relationship to Insured Coverage Start Date Coverage End Date [facility] [address] [address] [place], [place] [id number] JEFF TREJO Self - patient is the insured Medical (General) History Medical History History ICD Code Denies [place],DM,CVA,Lung disease,renal dise ase Surgical History Surgery Date(Month/Year) section
--- OUTSIDE RECORDS SUMMARY | 2024-08-25 13:54 | XMS_ITS | Clinical Summary ---
Author Organization [facility] Address [address] [place] [address] Care Team Providers Care Car Barn Laborer Name Role Phone Unknown Primary Care Provider [...] 83 03/02/2022 7:54 PM EST Temperature 36.9 C (98.4 F) 03/02/2022 7:54 PM EST Respiratory Rate 16 03/02/2022 7:54 PM EST [...] - season) 2023 Influenza Vaccine 09/18/2024 Insurance [facility] INDIVIDUAL EXCHANGE [facility] IN[facility]UAL EXCHANGE Care Teams Car Barn Laborer Relationship Specialty Start Date End Date Unknown Unknow Provider Address PCP - General 02/18/22
== END 2024-08-25 13:15 | disposition home or self-care (01) ==
LOC: HO.MAMMO 13:14
PROVIDERS: PCP Internal Medicine; Visit Provider Internal Medicine
DX: Z12.31 Encounter for screening mammogram for malignant neoplasm of breast (principal)
CPT/HCPCS: 77063; 77067

== ENCOUNTER → 2024-08-25 14:30 | Outpatient (BNV) | payer OTHER, SELFPAY | PROVIDERS: PCP Internal Medicine; Visit Provider Internal Medicine | DX: Z12.31 Encounter for screening mammogram for malignant neoplasm of breast (principal) | CPT/HCPCS: 77063; 77067 ==

== ENCOUNTER 2025-01-05 08:16 | Outpatient (REF) | payer OTHER, SELFPAY ==
[2025-01-06 12:09] LABS: CT PCR NOT DETECTED (Not Detect.); NG PCR NOT DETECTED (Not Detect.)
== END 2025-01-05 08:17 | disposition home or self-care (01) ==
LOC: HO.LNP 08:16
PROVIDERS: PCP Internal Medicine; Visit Provider Advanced Practice Midwife
DX: Z01.419 Encounter for gynecological examination (general) (routine) without abnormal findings (principal); Z20.2 Contact with and (suspected) exposure to infections with a predominantly sexual mode of transmission; Z13.39 Encounter for screening examination for other mental health and behavioral disorders; Z11.51 Encounter for screening for human papillomavirus (HPV)
CPT/HCPCS: 87491; 87591; 87626; 88175

== ENCOUNTER 2025-02-03 07:25 | Outpatient (REF) | payer OTHER, SELFPAY ==
--- OUTSIDE RECORDS SUMMARY | 2025-02-03 16:08 | XMS_ITS | Clinical Summary ---
Author Organization [facility] Address [address] [place] [address] Care Team Providers Care Director Software Quality Assurance Name Role Phone Unknown Primary Care Provider [...] (1 - 1-dose 75+ series) 08/29/2042 Insurance [facility] INDIVIDUAL EXCHANGE [facility] INDIVIDUAL EXCHANGE Care Teams Director Software Quality Assurance Relationship Specialty Start Date End Date Unknown Unknow Provider Address PCP - General 02/18/22
== END 2025-02-03 07:26 | disposition home or self-care (01) ==
LOC: HO.LNP 07:25
PROVIDERS: PCP Internal Medicine; Visit Provider Obstetrics & Gynecology
DX: R87.610 Atypical squamous cells of undetermined significance on cytologic smear of cervix (ASC-US) (principal); R87.810 Cervical high risk human papillomavirus (HPV) DNA test positive
CPT/HCPCS: 57454; 88305; 88341; 88342

== ENCOUNTER 2025-02-03 07:25 | Outpatient (AMB) | payer OTHER, SELFPAY ==
--- OUTSIDE RECORDS SUMMARY | 2025-02-03 07:28 | XMS_ITS | Patient Health Record ---
Author Organization [facility] Address [address] [place] [address] Care Team Providers Care Location Worker Name Role Phone Evelyn (RETIRED) Eliu PICKERING Primary Care Provide r Alex Phillips Jr Reza Unavailable Reason For Referral No Information Medications Medication SIG (Take, Route, Frequency, Duration) Notes Start Date End Date Status ibuprofen 1 tab Oral as needed Active MiraLax (colon prep) 8.3 ounce (238) grams mixed with Gatorade or Crystal Light orally begin at 5:00 p.m. the day before the procedure; Duration: 1 day 11/26/2019 Active Immunizations Vaccine Route Administration Date Status Comme nts Influenza Unknown 11/26/2019 Refused Social History Tobacco Use: Social History Observation Description Date Details (start date - stop date) Never Smoker NA - NA Social History Drugs/Alcohol: Social Info Question Answer Notes Alcohol Screen Did you have a drink containing alcohol in the past year? 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 Problems Problem Type SNOMED Code ICD Code Onset Dates Problem Status W/U Status Risk Notes Problem Colon cancer screening ([id number]) Colon cancer screening (Z12.11) Active confirmed Problem jail current use of non-steroidal anti-inflammat ory drug ([id number] 03) jail (current) use of non-steroidal anti-inflammat ories (NSAID) (Z79.1) Active confirmed Plan Of Treatment Future Test Test Name Order Date COLONOSCOPY 11/26/2019 Insurance Providers Payer Name Payer Address Payer Phone Subscriber Number Group Number Insured Name Patient Relationship to Insured Coverage Start Date Coverage End Date [facility] [address] [address] [place], [place] [id number] JEFF TREJO Self - patient is the insured Medical (General) History Medical History History ICD Code Denies [place],DM,CVA,Lung disease,renal dise ase Surgical History Surgery Date(Month/Year) section
--- OUTSIDE RECORDS SUMMARY | 2025-02-03 07:28 | XMS_ITS | Clinical Summary ---
Author Organization [facility] Address [address] [place] [address] Care Team Providers Care Saw Grinder Name Role Phone Unknown Primary Care Provider [...] Zoster (Shingles) Vaccine (1 of 2) 08/29/2017 Influenza Vaccine 09/18/2024 COVID-19 Vaccine (2 - 2024- season) 2024 RSV Vaccine 50 years and old er and Patients (1 - 1-dose 75+ series) 08/29/2042 Insurance [facility] INDIVIDUAL EXCHANGE [facility] INDIVIDUAL EXCHANGE Care Teams Saw Grinder Relationship Specialty Start Date End Date Unknown Unknow Provider Address PCP - General 02/18/22
--- NOTE | 2025-02-03 07:32 | A.OFFVIS_ITS ---
Vital Signs 02/03/25 07:38 Height 5 ft 6 in Weight 193 lb BMI 31.1 BP 108/66 Intake Visit Reasons: Colposcopy Lead Technical Architect Required: No Information Interpreted: non-clinical & clinical Verifying Machine Operator: Verifying Machine Operator Present (Lucy TOTH) Accompanied by: Self / Same As Patient Allergies No Known Allergies Allergy (Verified 02/03/25 07:40) Post menopausal: Yes HPI Comments Details: Presenting referred for abnormal Pap smear done on 01/12 which showed the following: General Category: Epithelial cell abnormality. Adequacy: Endocervical component absent. Interpretation: Atypical squamous cells of undetermined significance. Atrophy. Abundant, partially obscuring acute inflammation. Scant squamous cellularity. 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 Current occupational exposures/hazards: No Cognitive needs: No Hearing needs: No Vision needs: Yes Female Reproductive History Menstrual Age of Menarche: 12 Date of menopause: 12/22/19 Review of Systems Const All systems reviewed & are unremarkable except as noted in HPI and below Reports as per HPI and Reports no additional complaints GI Reports no additional complaints Reports no additional complaints Physical Exam Vital Signs: Last Vital Signs BP 108/66 02/03/25 07:38 BMI result Body Mass Index 31.1 Office Procedures Colposcopy Colposcopy: Pre-Procedure Counseling: Before beginning the procedure, I conducted comprehensive counseling with the patient. We thoroughly discussed the procedure itself, including its details, alternatives, and all associated risks. This included but not limited to the following complications such as bleeding, infection, and injury to the vagina, bladder, and vessels, as well as the potential need for transfusion with all its associated risks. Subsequently, the patient sign the consent. Pap smear result: ASCUS HPV positive, HPV 16/18 negative Procedure: During the procedure, the following steps were performed: A speculum was inserted, and acetic acid was applied. Colposcopy was conducted, allowing visualization of the transformation zone. Acetowhite lesions were identified at the 1 o'clock position. Cervical biopsies were obtained from the 1 o'clock position, followed by an endocervical curettage (ECC). Vaginoscopy of the upper vagina revealed no evidence of aceto-white lesions. Hemostasis was achieved using Monsel solution, and the patient tolerated the procedure well. Post-Procedure Instructions: The patient was advised to promptly contact the office or the after hours answering service or go to the emergency room if experiencing a temperature exceeding 100.4?F, abdominal pain, nausea/vomiting, or bleeding. Additionally, the patient was instructed to abstain from vaginal intercourse and bathtub use. The patient confirmed understanding of these instructions. Discharge Instructions: The patient was instructed to schedule a follow-up appointment in 2 weeks for further evaluation and management. Please note that this note was generated using a voice recognition program, and errors may have occurred during manual equipment mechanic. [id number] of cervix including upper vagina with biopsy and ECC Procedure code (CPT) selection complete Assessment & Plan Assessment & Plan (1) ASCUS with positive high risk HPV cervical: Code(s): R87.610 - Atypical squamous cells of undetermined significance on cytologic smear of cervix (ASC-US); R87.810 - Cervical high risk human papillomavirus (HPV) DNA test positive Category: Medical Plan: Discussed with the patient the result of her abnormal pap, its significance, risk of progression, persistence, and regression. the false positive/negative rate of a Pap smear as a screening test in detecting cervical cancer and the indication for a diagnostic test -colposcopy, biopsy, endocervical curettage. The patient verbalized understanding and agreed with the plan, all questions answered. Colposcopy, biopsy /ECC done, see procedure note Orders: Orders AMB Colposcopy Today R87.610 - Atypical squamous cells of undetermined significance on cytologic smear of cervix (ASC-US), R87.810 - Cervical high risk human papillomavirus (HPV) DNA test positive Coding Level of Care Code Procedure Only Diagnoses ASCUS with positive high risk HPV cervical R87.610; R87.810 CPT Codes Colposcopy - CPT: 48403-[id number] of cervix including upper vagina with biopsy and ECC ([id number])
[2025-02-03 07:38] VITALS: BP 108/66; BMI 31.1
== END 2025-02-03 08:09 | disposition home or self-care (01) ==
LOC: HO.HWS 07:26
PROVIDERS: PCP Internal Medicine; Visit Provider Obstetrics & Gynecology
DX: R87.610 Atypical squamous cells of undetermined significance on cytologic smear of cervix (ASC-US) (principal); R87.810 Cervical high risk human papillomavirus (HPV) DNA test positive
CPT/HCPCS: 57454